=== PATIENT | male | born 1955 | race Caucasian/White ===

== ENCOUNTER 2017-04-10 09:55 | Emergency (ER) | payer SELFPAY ==
[~2017-04-10] VITALS: Ht 180.3 cm; Wt 72.0 kg
[~2017-04-10 09:55] MED LIST: AMOXICILLIN500 M2 PO; AMOXICILLIN500 MG PO; CIPROFLOXACN500 MG PO; LORTAB 10-325 M1 TAB PO; NAPROSYN500 MG PO; PENICILLN VK500 MG PO; TYLENOL # 31 TAB PO
[2017-04-10] MEDS ORDERED: AUGMENTIN875TAB PO (10:15)
[2017-04-10 10:17] VITALS: BP 124/84
== END 2017-04-10 10:21 | disposition home or self-care (01) | DRG 159 ==
LOC: ED 09:55
DX: K08.89 Other specified disorders of teeth and supporting structures (principal); R22.0 Localized swelling, mass and lump, head

== ENCOUNTER 2017-06-15 08:55 | Emergency (ER) | payer SELFPAY ==
[~2017-06-15] VITALS: Ht 180.3 cm; Wt 72.7 kg
[~2017-06-15 08:55] MED LIST changes: +AUGMENTIN875TAB PO
[2017-06-15] MEDS ORDERED: CLINDAMYCIN300 M1 PO (09:37)
[2017-06-15 09:46] VITALS: BP 114/73
== END 2017-06-15 09:54 | disposition home or self-care (01) | DRG 159 ==
LOC: ED 08:55
DX: K08.89 Other specified disorders of teeth and supporting structures (principal); F17.210 Nicotine dependence, cigarettes, uncomplicated

== ENCOUNTER 2017-08-11 08:39 | Emergency (ER) | payer SELFPAY ==
[~2017-08-11] VITALS: Ht 180.3 cm; Wt 80.0 kg
[~2017-08-11 08:39] MED LIST changes: +CLINDAMYCIN300 M1 PO
[2017-08-11] MEDS ORDERED: PENICILLN VK500 M1 PO (08:48)
[2017-08-11 08:55] VITALS: BP 126/83
== END 2017-08-11 08:55 | disposition home or self-care (01) | DRG 159 ==
LOC: ED 08:39
DX: K08.89 Other specified disorders of teeth and supporting structures (principal); F17.210 Nicotine dependence, cigarettes, uncomplicated; R68.84 Jaw pain

== ENCOUNTER 2017-09-29 08:34 | Emergency (ER) | payer SELFPAY ==
[~2017-09-29] VITALS: Ht 180.3 cm; Wt 70.0 kg
[~2017-09-29 08:34] MED LIST changes: +PENICILLN VK500 M1 PO
[2017-09-29] MEDS ORDERED: PENICILLN VK500 M1 PO (08:47)
[2017-09-29 08:53] VITALS: BP 130/78
== END 2017-09-29 08:56 | disposition home or self-care (01) | DRG 159 ==
LOC: ED 08:34
DX: R68.84 Jaw pain (principal); F17.210 Nicotine dependence, cigarettes, uncomplicated; R22.0 Localized swelling, mass and lump, head

== ENCOUNTER 2017-11-02 09:16 | Emergency (ER) | payer OTHER ==
[~2017-11-02] VITALS: Ht 180.3 cm; Wt 90.0 kg
[2017-11-02] MEDS ORDERED: PENICILLN VK500 MG PO (09:34)
[2017-11-02 09:40] VITALS: BP 127/81
== END 2017-11-02 09:40 | disposition home or self-care (01) ==
LOC: ED 09:16
DX: K04.7 Periapical abscess without sinus (principal); F17.210 Nicotine dependence, cigarettes, uncomplicated; K08.89 Other specified disorders of teeth and supporting structures; R68.84 Jaw pain

== ENCOUNTER 2018-04-10 12:15 | Emergency (ER) | payer SELFPAY ==
[~2018-04-10] VITALS: Ht 180.3 cm; Wt 75.0 kg
[2018-04-10] MEDS ORDERED: PENICILLN VK500 M1 PO (12:35)
[2018-04-10 12:39] VITALS: BP 126/71
== END 2018-04-10 12:39 | disposition home or self-care (01) | DRG 159 ==
LOC: ED 12:15
DX: K08.89 Other specified disorders of teeth and supporting structures (principal); F17.290 Nicotine dependence, other tobacco product, uncomplicated

== ENCOUNTER 2018-07-02 12:17 | Emergency (ER) | payer MEDICARE, OTHER ==
[~2018-07-02] VITALS: Ht 180.3 cm; Wt 72.7 kg
[2018-07-02] MEDS ORDERED: PENICILLN VK500 MG PO (13:08)
[2018-07-02 13:15] VITALS: BP 104/73
== END 2018-07-02 13:15 | disposition home or self-care (01) ==
LOC: ED 12:17
DX: K04.7 Periapical abscess without sinus (principal); K08.89 Other specified disorders of teeth and supporting structures; M25.48 Effusion, other site; F17.210 Nicotine dependence, cigarettes, uncomplicated

== ENCOUNTER 2019-03-21 | Inpatient (IN) | payer MEDICARE, OTHER ==
[2019-03-17 15:33] LABS: HEMATOCRIT 45.2 % (39.0-50.0); HEMOGLOBIN 15.1 g/dl (14.0-18.0); IMMATURE GRANULOCYTES 0.3 % (0.0-5.0); MEAN CELL VOLUME 92.1 fL CALC (80.0-100.0); MEAN CORPUSCULAR HGB 30.8 pG CALC (26.0-32.0); MEAN CORPUSCULAR HGB CONC 33.4 g/L CALC (32.0-36.0); NEUT# 4.76 thou/uL (1.82-7.42); RED BLOOD COUNT 4.91 mill/uL (4.70-6.10); RED CELL DISTRI WIDTH 14.1 % (11.5-15.5)
[2019-03-17 15:44] LABS: ANION GAP 19 (6-22 (CALC)); BUN 18 mg/dL (8-23); BUN/CREATININE RATIO 22 (12-20 (CALC)); CARBON DIOXIDE 21 mmol/l (22-30); CHLORIDE 96 mmol/l (95-108); CREATININE 0.8 mg/dL (0.7-1.3); GFR > 60 ML/MIN (>=60 (CALC)); GFR FOR AFR.AMER. > 60 ML/MIN (>=60 (CALC)); SODIUM 131 mmol/l (137-146)
[2019-03-17 23:00] VITALS: BP 120/70
[2019-03-17 23:15] VITALS: BP 95/69
[2019-03-17 23:30] VITALS: BP 102/53
[2019-03-17 23:45] VITALS: BP 92/79
[2019-03-18] VITALS (25 sets, daily range): BP systolic 77–140; BP diastolic 50–85
[2019-03-18 06:25] LABS: CHOLESTEROL HDL RATIO 4.3 (<4.4 (CALC)); MAGNESIUM 1.6 mg/dL (1.6-2.3)
[2019-03-18 18:53] LABS: URINE BLOOD DIPSTICK NEGATIVE (NEGATIVE); URINE CLARITY SL CLOUDY; URINE GLUCOSE - DIPSTICK NEGATIVE (NEGATIVE); URINE KETONE NEGATIVE (NEGATIVE); URINE LEUK ESTERASE NEGATIVE (Negative); URINE NITRITE - DIPSTICK NEGATIVE (Negative); URINE PROTEIN - DIPSTICK 30 mg/dL (NEG-TRACE); URINE SPECIFIC GRAVITY >=1.030
[2019-03-18 18:57] LABS: URINE BILIRUBIN - DIPSTICK NEGATIVE (NEGATIVE); URINE COLOR AMBER
[2019-03-18 19:18] LABS: URINE AMORPH SEDIMENT FEW hpf (NONE-FER); URINE RBC 0-2 RBC/hpf (0-5); URINE WBC 0-2 WBC/hpf (0-5)
[2019-03-19] VITALS (16 sets, daily range): BP systolic 90–123; BP diastolic 56–87
[2019-03-19 11:10] LABS: ANION GAP 16 (6-22 (CALC)); BUN 25 mg/dL (8-23); BUN/CREATININE RATIO 28 (12-20 (CALC)); CARBON DIOXIDE 21 mmol/l (22-30); CHLORIDE 96 mmol/l (95-108); CREATININE 0.9 mg/dL (0.7-1.3); GFR > 60 ML/MIN (>=60 (CALC)); GFR FOR AFR.AMER. > 60 ML/MIN (>=60 (CALC)); MAGNESIUM 1.7 mg/dL (1.6-2.3); POTASSIUM 4.9 mmol/l (3.5-5.1); SODIUM 129 mmol/l (137-146)
[2019-03-20] VITALS (14 sets, daily range): BP systolic 91–134; BP diastolic 66–83
[2019-03-20 05:15] LABS: HEMATOCRIT 44.8 % (39.0-50.0); HEMOGLOBIN 14.7 g/dl (14.0-18.0); IMMATURE GRANULOCYTES 0.2 % (0.0-5.0); MEAN CELL VOLUME 94.9 fL CALC (80.0-100.0); MEAN CORPUSCULAR HGB 31.1 pG CALC (26.0-32.0); MEAN CORPUSCULAR HGB CONC 32.8 g/L CALC (32.0-36.0); NEUT# 6.33 thou/uL (1.82-7.42); RED BLOOD COUNT 4.72 mill/uL (4.70-6.10); RED CELL DISTRI WIDTH 14.6 % (11.5-15.5)
[2019-03-20 05:46] LABS: ALBUMIN 3.5 g/dL (3.2-5.0); ALKALINE PHOSPHATASE 116 u/l (38-126); ANION GAP 14 (6-22 (CALC)); BILIRUBIN, TOTAL 1.5 mg/dL (0.0-1.4); BUN 25 mg/dL (8-23); BUN/CREATININE RATIO 33 (12-20 (CALC)); CARBON DIOXIDE 23 mmol/l (22-30); CHLORIDE 98 mmol/l (95-108); CREATININE 0.8 mg/dL (0.7-1.3); GFR > 60 ML/MIN (>=60 (CALC)); GFR FOR AFR.AMER. > 60 ML/MIN (>=60 (CALC)); SGOT/AST 450 u/l (19-48); SODIUM 129 mmol/l (137-146); TOTAL PROTEIN 6.5 g/dL (6.3-8.2)
[2019-03-21] VITALS (11 sets, daily range): BP systolic 86–119; BP diastolic 65–89
[2019-03-21 20:17] LABS: ANION GAP 14 (6-22 (CALC)); BUN 20 mg/dL (8-23); BUN/CREATININE RATIO 30 (12-20 (CALC)); CARBON DIOXIDE 22 mmol/l (22-30); CHLORIDE 97 mmol/l (95-108); CREATININE 0.7 mg/dL (0.7-1.3); GFR > 60 ML/MIN (>=60 (CALC)); GFR FOR AFR.AMER. > 60 ML/MIN (>=60 (CALC)); MAGNESIUM 1.5 mg/dL (1.6-2.3); POTASSIUM 4.4 mmol/l (3.5-5.1); SODIUM 129 mmol/l (137-146)
[2019-03-22] VITALS (13 sets, daily range): BP systolic 71–108; BP diastolic 47–79
[2019-03-22 05:52] LABS: ANION GAP 14 (6-22 (CALC)); BUN 23 mg/dL (8-23); BUN/CREATININE RATIO 30 (12-20 (CALC)); CARBON DIOXIDE 20 mmol/l (22-30); CHLORIDE 98 mmol/l (95-108); CREATININE 0.8 mg/dL (0.7-1.3); GFR > 60 ML/MIN (>=60 (CALC)); GFR FOR AFR.AMER. > 60 ML/MIN (>=60 (CALC)); POTASSIUM 4.8 mmol/l (3.5-5.1); SODIUM 128 mmol/l (137-146)
[2019-03-22 10:03] LABS: INTERNATIONAL NORMALIZED RATIO 1.3 RATIO (0.7-1.3); PROTHROMBIN TIME 13.5 SECONDS (9.0-12.5)
[2019-03-23] VITALS (9 sets, daily range): BP systolic 86–122; BP diastolic 55–88
[2019-03-23 05:51] LABS: HEMATOCRIT 43.8 % (39.0-50.0); HEMOGLOBIN 14.1 g/dl (14.0-18.0); IMMATURE GRANULOCYTES 0.4 % (0.0-5.0); MEAN CELL VOLUME 95.4 fL CALC (80.0-100.0); MEAN CORPUSCULAR HGB 30.7 pG CALC (26.0-32.0); MEAN CORPUSCULAR HGB CONC 32.2 g/L CALC (32.0-36.0); NEUT# 3.87 thou/uL (1.82-7.42); RED BLOOD COUNT 4.59 mill/uL (4.70-6.10); RED CELL DISTRI WIDTH 15.2 % (11.5-15.5)
[2019-03-23 06:20] LABS: ALBUMIN 3.3 g/dL (3.2-5.0); ALKALINE PHOSPHATASE 113 u/l (38-126); ANION GAP 14 (6-22 (CALC)); BILIRUBIN, TOTAL 1.2 mg/dL (0.0-1.4); BUN 22 mg/dL (8-23); BUN/CREATININE RATIO 31 (12-20 (CALC)); CARBON DIOXIDE 24 mmol/l (22-30); CHLORIDE 98 mmol/l (95-108); CREATININE 0.7 mg/dL (0.7-1.3); GFR > 60 ML/MIN (>=60 (CALC)); GFR FOR AFR.AMER. > 60 ML/MIN (>=60 (CALC)); POTASSIUM 4.8 mmol/l (3.5-5.1); SGOT/AST 126 u/l (19-48); SODIUM 131 mmol/l (137-146); TOTAL PROTEIN 6.3 g/dL (6.3-8.2)
== END 2019-03-23 18:25 | disposition short-term general hospital (02) | DRG 308 ==
PROVIDERS: Family Medicine; Nurse Practitioner Family; ADMIT Internal Medicine
DX: I48.0 Paroxysmal atrial fibrillation (principal); I50.21 Acute systolic (congestive) heart failure; F10.231 Alcohol dependence with withdrawal delirium; E87.1 Hypo-osmolality and hyponatremia; I42.6 Alcoholic cardiomyopathy; F17.210 Nicotine dependence, cigarettes, uncomplicated; I95.9 Hypotension, unspecified; K70.31 Alcoholic cirrhosis of liver with ascites; E83.42 Hypomagnesemia; Z59.0 Homelessness
CPT/HCPCS: J1650; J2060

== ENCOUNTER 2019-04-07 04:55 | Observation (INO) | payer MEDICARE, OTHER ==
[2019-04-07] VITALS (10 sets, daily range): BP systolic 93–118; BP diastolic 56–85
[~2019-04-07] VITALS: Ht 180.3 cm; Wt 77.6 kg
[2019-04-07] MEDS ORDERED: TOPROL XL25 M1 PO (05:32)
[2019-04-07] MEDS ORDERED: LISINOPRIL2.5 MG PO (05:33)
[2019-04-07 06:22] LABS: HEMATOCRIT 48.1 % (39.0-50.0); HEMOGLOBIN 15.8 g/dl (14.0-18.0); IMMATURE GRANULOCYTES 0.2 % (0.0-5.0); MEAN CELL VOLUME 92.9 fL CALC (80.0-100.0); MEAN CORPUSCULAR HGB 30.5 pG CALC (26.0-32.0); MEAN CORPUSCULAR HGB CONC 32.8 g/L CALC (32.0-36.0); NEUT# 5.62 thou/uL (1.82-7.42); RED BLOOD COUNT 5.18 mill/uL (4.70-6.10); RED CELL DISTRI WIDTH 14.1 % (11.5-15.5)
[2019-04-07 06:42] LABS: D-DIMER 1.25 mg/L (0.19-0.60); INTERNATIONAL NORMALIZED RATIO 1.4 RATIO (0.7-1.3); PROTHROMBIN TIME 14.5 SECONDS (9.0-12.5)
[2019-04-07 06:42] LABS: URINE BILIRUBIN - DIPSTICK NEGATIVE (NEGATIVE); URINE BLOOD DIPSTICK NEGATIVE (NEGATIVE); URINE COLOR YELLOW; URINE GLUCOSE - DIPSTICK NEGATIVE (NEGATIVE); URINE KETONE NEGATIVE (NEGATIVE); URINE LEUK ESTERASE NEGATIVE (NEGATIVE); URINE NITRITE - DIPSTICK NEGATIVE (Negative); URINE PROTEIN - DIPSTICK TRACE mg/dL (NEG-TRACE); URINE SPECIFIC GRAVITY 1.025; URINE UROBILINOGEN - DIPSTICK 0.2 E.U./dL (0.2)
[2019-04-07 06:50] LABS: ALKALINE PHOSPHATASE 120 u/l (38-126); ANION GAP 16 (6-22 (CALC)); BILIRUBIN, TOTAL 1.6 mg/dL (0.0-1.4); BUN 20 mg/dL (8-23); BUN/CREATININE RATIO 26 (12-20 (CALC)); CARBON DIOXIDE 24 mmol/l (22-30); CHLORIDE 94 mmol/l (95-108); CREATININE 0.8 mg/dL (0.7-1.3); GFR > 60 ML/MIN (>=60 (CALC)); GFR FOR AFR.AMER. > 60 ML/MIN (>=60 (CALC)); POTASSIUM 4.8 mmol/l (3.5-5.1); SGOT/AST 33 u/l (19-48); SODIUM 130 mmol/l (137-146); TOTAL PROTEIN 7.3 g/dL (6.3-8.2)
[2019-04-07 06:56] LABS: ALBUMIN 4.1 g/dL (3.2-5.0)
[2019-04-07 07:02] LABS: MYOGLOBIN 42 ng/mL (0 - 121)
[2019-04-08] VITALS (13 sets, daily range): BP systolic 92–130; BP diastolic 67–85
[2019-04-08 05:43] LABS: HEMATOCRIT 46.1 % (39.0-50.0); HEMOGLOBIN 15.2 g/dl (14.0-18.0); MEAN CELL VOLUME 91.8 fL CALC (80.0-100.0); MEAN CORPUSCULAR HGB 30.3 pG CALC (26.0-32.0); RED BLOOD COUNT 5.02 mill/uL (4.70-6.10); RED CELL DISTRI WIDTH 14.2 % (11.5-15.5)
[2019-04-08 07:19] LABS: ANION GAP 16 (6-22 (CALC)); BUN 23 mg/dL (8-23); BUN/CREATININE RATIO 26 (12-20 (CALC)); CARBON DIOXIDE 23 mmol/l (22-30); CHLORIDE 95 mmol/l (95-108); CREATININE 0.9 mg/dL (0.7-1.3); GFR > 60 ML/MIN (>=60 (CALC)); GFR FOR AFR.AMER. > 60 ML/MIN (>=60 (CALC)); SODIUM 129 mmol/l (137-146)
[2019-04-08] MEDS ORDERED: LANOXIN0.125 MG PO (14:02)
[2019-04-08] MEDS ORDERED: CORDARONE/200 MG/TAB PO (14:02)
== END 2019-04-08 16:46 | disposition home health service (06) ==
LOC: ED 04:55 → ED-I 09:14 → ED 09:26 → ICU 09:27
PROVIDERS: Family Medicine; ADMIT Internal Medicine; ATTEND Internal Medicine
PROC: 02HV33Z Insertion of Infusion Device into Superior Vena Cava, Percutaneous Approach (ICD-10-PCS; principal; 2019-04-07)
DX: I48.91 Unspecified atrial fibrillation (principal); I50.20 Unspecified systolic (congestive) heart failure; I42.6 Alcoholic cardiomyopathy; K70.30 Alcoholic cirrhosis of liver without ascites; I95.9 Hypotension, unspecified; F17.200 Nicotine dependence, unspecified, uncomplicated
CPT/HCPCS: Q9967